=== PATIENT | male | born 1945 | race Caucasian/White ===

== ENCOUNTER → 2016-08-15 | Outpatient (CLI) | payer MEDICARE, MEDICAID ==
[~2016-08-15] MED LIST: B-1100 MG PO; FOLIC ACID1 MG PO; PEPCID20 MG PO; PRINIVIL10 MG PO; SYNTHROID50 MCG PO; TYLENOL325 MG PO; VITAMIN B COMP1 EACH PO; ZOLOFT100 M1 PO
== END | disposition disaster alternative care site (69) ==
LOC: GAMB 22:13
DX: F32.9 Major depressive disorder, single episode, unspecified (principal); I10 Essential (primary) hypertension; E03.9 Hypothyroidism, unspecified; R07.89 Other chest pain; R06.02 Shortness of breath; Z79.899 Other long term (current) drug therapy
CPT/HCPCS: A0422; A0425; A0427